=== PATIENT | female | born 1985 | race Two or more races ===

== ENCOUNTER 2017-12-30 11:31 | Emergency (ER) | END 2017-12-30 14:15 | disposition home or self-care (01) ==

== ENCOUNTER 2017-12-30 14:27 | Outpatient (CLI) | END 2017-12-30 18:05 | disposition home or self-care (01) ==

== ENCOUNTER 2018-03-08 18:59 | Inpatient (IN) | END 2018-03-11 15:55 | disposition home or self-care (01) | DRG 807 ==